=== PATIENT | female | born 1990 | race African-American/Black ===

== ENCOUNTER 2018-01-23 07:57 | Emergency (ER) | payer OTHER, SELFPAY ==
[2018-01-23] MEDS ORDERED: Adacel (T-DAP) 0.5 ML VIAL ONE (08:13)
== END 2018-01-23 08:40 | disposition home or self-care (01) ==
LOC: SCSER 07:57
DX: L05.91 Pilonidal cyst without abscess (principal)
CPT/HCPCS: 90471; 90715

== ENCOUNTER 2018-01-27 14:42 | Emergency (ER) | payer SELFPAY ==
[2018-01-27] MEDS ORDERED: Lidocaine 1% 20 ML MDV ONE (14:54)
== END 2018-01-27 15:25 | disposition home or self-care (01) ==
LOC: SCSER 14:42
DX: L05.01 Pilonidal cyst with abscess (principal); Z79.899 Other long term (current) drug therapy
CPT/HCPCS: 10080; J2001

== ENCOUNTER 2018-11-11 17:39 | Emergency (ER) | payer SELFPAY ==
[2018-11-11] MEDS ORDERED: Ketorolac Tromethamine 60 MG/2 ML VIAL ONE (18:31)
[2018-11-11] MEDS ORDERED: Dexamethasone 10 MG/ML VIAL ONE (18:31)
== END 2018-11-11 18:50 | disposition home or self-care (01) ==
LOC: SCSER 17:39
DX: J02.9 Acute pharyngitis, unspecified (principal)
CPT/HCPCS: 87081; 87430; 96372; 99283; J1100; J1885